=== PATIENT | female | born 1990 | race Caucasian/White ===

== ENCOUNTER 2016-11-23 12:56 | Emergency (ER) | payer OTHER ==
[~2016-11-23] VITALS: Ht 172.7 cm; Wt 84.0 kg
[~2016-11-23 12:56] MED LIST: Z.0.NO CURRENT MEDS
[2016-11-23 13:03] VITALS: BP 126/87; PULSE 79; RESP 16; TEMP 97.6; O2SAT 100
[2016-11-23] MEDS ORDERED: TRI-TAB (13:10)
--- NOTE | 2016-11-23 13:26 | PD ---
HPI Chief Complaint: Fall Time Seen by Provider: 13:05 Travel History International Travel<30 days: No Contact w/Intl Traveler<30days: No Traveled to known affect area: No History of Present Illness HPI 26-year-old female presents emergency department for evaluation of head injury 3 days ago. 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 There was no loss of consciousness. Patient remembers entire event. She reports she did not sustain any other injuries. She currently has a mild left- sided headache in the region of her left maxillary sinus which she says is chronic for her. There has been no change in the headache since the injury. The pain is constant, nonradiating, no exacerbating or alleviating factors, severity 3 out of 10. Her mother encouraged her to come in for evaluation because this was a work-related injury. Patient denies change in vision, nausea , vomiting, chest pain, abdominal pain, pain in any extremities or neck. PFSH Past Medical History Medical History: Denies Significant Hx Diminished Hearing: No Influenza Vaccination: No ?: Not LMP: LAST MONTH : 0 Past Surgical History Tympanostomy Tube: Yes Social History Alcohol Use: No Tobacco Use: No Substance Use: No Allergies-Medications (Allergen,Severity, Reaction): Coded Allergies: No Known Allergies (Verified , 11/23/16) Reported Meds & Prescriptions Reported Meds & Active Scripts Active Reported Tri-Sprintec (Norgestimate-Ethinyl Estradiol) 0.18/0.215/0.25 Mg-35 Mcg Tab Review of Systems Except as stated in HPI: all other systems reviewed are Neg Physical Exam Narrative GENERAL: Alert, well-appearing female in no acute distress. SKIN: Focused skin assessment warm/dry. HEAD: Normocephalic. Small scalp hematoma left parietal region. No crepitus. Mildly tender. EYES: Pupils equal and round. No scleral icterus. No injection or drainage. EOMs intact ENT: No nasal bleeding or discharge. Mucous membranes pink and moist. NECK: Trachea midline. No JVD. No cervical spine tenderness. Full painless range of motion. CARDIOVASCULAR: Regular rate and rhythm. No murmur appreciated. RESPIRATORY: No accessory muscle use. Clear to auscultation. Breath sounds equal bilaterally. GASTROINTESTINAL: Abdomen soft, non-tender, nondistended. Hepatic and splenic margins not palpable. MUSCULOSKELETAL: No obvious deformities. No clubbing. No cyanosis. No edema. NEUROLOGICAL: Awake and alert. No obvious cranial nerve deficits. Motor grossly within normal limits. Normal speech. PSYCHIATRIC: Appropriate mood and affect; insight and judgment normal. Data Data Last Documented VS Vital Signs Date Time Temp Pulse Resp B/P Pulse Ox O2 Delivery O2 Flow Rate FiO2 11/23/16 13:03 97.6 79 16 126/87 100 MDM Medical Decision Making Medical Screen Exam Complete: Yes Emergency Medical Condition: Yes Differential Diagnosis Minor head injury, scalp hematoma, concussion Narrative Course 26-year-old female presents to emergency room for evaluation of a fall and head injury 3 days ago while at work. Patient has a normal neurologic exam. Reporting mild left-sided headache which is chronic for her due to her allergies and sinuses. Patient had no loss of consciousness, no visual changes , no nausea or vomiting, no confusion or severe headaches. Imaging is not warranted. This was discussed with family and they agree. Diagnosis Primary Impression: Head injury Qualified Code: S09.90XA - Head injury, initial encounter Referrals: Primary Care Physician Patient Instructions: General Instructions, Head Injury (ED) Additional Instructions: Take [id number]-[id number] Motrin or Tylenol as needed for headache. Avoid any strenuous activity until headache is resolved. Follow-up with her primary doctor. Return to the emergency department for evaluation of the developed any new or worsening symptoms such as severe headache, visual changes, nausea and repeated vomiting, or any other concerning symptoms Disposition: 01 DISCHARGE HOME Condition: Stable Radha Mendieta Nov 23, 2016 13:26
== END 2016-11-23 13:35 | disposition home or self-care (01) ==
LOC: PHEFT 12:56
DX: S00.03XA Contusion of scalp, initial encounter (principal); S09.90XA Unspecified injury of head, initial encounter; W01.0XXA Fall on same level from slipping, tripping and stumbling without subsequent striking against object, initial encounter; Y93.89 Activity, other specified; Y92.511 Restaurant or cafe as the place of occurrence of the external cause; Y99.0 Civilian activity done for income or pay
CPT/HCPCS: 99282